=== PATIENT | female | born 1965 | race Caucasian/White ===

== ENCOUNTER → 2021-06-25 | Outpatient (CLI) | payer MEDICAID ==
[~2021-06-25] MED LIST: ANAS1TAB49 PO; ATOR20TA PO; CALC-26 PO; MULT-1146 PO; VITA1CAP PO
== END | disposition home or self-care (01) ==
LOC: LAB 10:07
PROVIDERS: ATTEND Surgery
DX: Z01.812 Encounter for preprocedural laboratory examination (principal); Z20.822 Contact with and (suspected) exposure to COVID-19
CPT/HCPCS: 87426

== ENCOUNTER → 2021-06-27 | Day surgery (SDC) | payer MEDICAID, OTHER ==
[~2021-06-27] VITALS: Ht 167.6 cm; Wt 78.9 kg
[~2021-06-27] MED LIST changes: +BUPIVACAINE HCL 0.5% (5MG/ML) 50ML ONE; +DEXAMETHASONE 4MG/ML 1ML VIAL ONE; +FENTANYL CITRATE/PF 50MCG/ML 2ML VIAL ONE; +HYDROMORPHONE HCL/PF 2MG/ML CPJ IV PRN; +LABETALOL 5MG/ML SYR 20 MG/4 ML SYRINGE IV PRN; +LACTATED RINGERS 1,000 ML IV SCH; +LIDOCAINE HCL 1% 20ML VIAL (Pyxis) INJ ONE; +MEPERIDINE HCL/PF 25MG/ML CPJ IV PRN; +MIDAZOLAM HCL 2 MG/2 ML VIAL ONE; +ONDANSETRON HCL 4MG/2ML INJ IV PRN; +ONDANSETRON HCL 4MG/2ML INJ ONE; +PROPOFOL 10MG/ML 100ML 100 ML IV ONE; +PROPOFOL 200MG/20ML VIAL IV ONE; +SKIN ADHESIVE 0.7 GM EA TOP ONE
[2021-06-27 09:29] VITALS: BP 141/78
== END | disposition home or self-care (01) ==
LOC: OR 05:29
PROVIDERS: ATTEND Surgery
DX: K40.90 Unilateral inguinal hernia, without obstruction or gangrene, not specified as recurrent (principal); E78.00 Pure hypercholesterolemia, unspecified; Z79.899 Other long term (current) drug therapy; Z98.890 Other specified postprocedural states; Z91.040 Latex allergy status
CPT/HCPCS: 49505; C1781; J1100; J2175; J2250; J2405; J2704; J3010; J3490; J7030